=== PATIENT | female | born 1995 | race Two or more races ===

== ENCOUNTER 2016-04-22 22:01 | Emergency (ER) | payer MEDICAID ==
[2016-04-22 22:26] VITALS: TEMP 98.4; BMI 23.1
[2016-04-23] MEDS ORDERED: HYDROmorphone 1 MG INJECTION IV ONE (01:27)
[2016-04-23] MEDS ORDERED: ONDANSETRON HCL 4 MG/2 ML VIAL IV ONE (01:27)
[2016-04-23] MEDS ORDERED: NS 1,000 ML IV ONE (01:28)
[2016-04-23 01:30] LABS: LEUKOCYTES/URINE 1+ (NEGATIVE); NITRITE/URINE NEG (NEGATIVE); RBC/URINE 0-2 (0-5); URINE OCCULT BLOOD NEG (NEG/TRACE)
--- NOTE | 2016-04-23 01:31 | EDPRACDOC ---
- General Information Chief Complaint: Abdominal Pain Stated Complaint: ABD PAIN DIARRHEA DX UTI FOOD POISONING Time Seen by Provider: 04/23/16 01:26 Information Source: Patient Mode Of Arrival: Car Home Medications: Home Medications Ondansetron HCl [Zofran] 4 mg PO Q6H PRN #20 tab 04/15/14 Nitrofurantoin [Macrobid] 100 mg PO BID #20 cap 04/23/16 Oxycodone HCl/Acetaminophen [Percocet 5-325 mg Tablet] 1 each PO Q4 #20 tablet 04/23/16 Allergies/Adverse Reactions: Allergies Allergy/AdvReac Type Severity Reaction Status Date / Time Sulfa (Sulfonamide Allergy Severe Hives* Verified 04/15/14 16:57 Antibiotics) - 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 SEEN AT URGENT CARE AND STARTED ON CIPRO WHICH HAS NOT HELPED. 1 EPISODE OF N/V/D. THIS HAS STOPPED. Pain Location: Reports: RLQ Pain Context: Reports: Spontaneous Pain Severity: Moderate Pain Quality: Reports: Aching Pain Radiation: Reports: No Radiation Last Menstrual Period: 04/11/16 : No Female Abdominal History: Denies: Abdominal Surgery Female Associated Signs & Symptoms: Reports: Nausea, Vomiting, Diarrhea Oral Intake: Normal Urinary Output: Normal ED Past Medical History - History Reviewed Yes Nurses notes reviewed and agree except as marked Travel Outside of [place] in the Last 3 Months?: No - Patient Medical History Psychological History: Denies: Depression Surgical History: Reports: Other (?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 negative: Fever, Chills, Weakness, Fatigue, Loss of Appetite Eyes: No Symptoms Reported. negative: Redness, Blurred Vision, Double Vision, Discharge, Pain, Light Sensitive, Photophobia Ears: No Symptoms Reported. negative: Pain, Hearing Loss, Drainage, Ear Pulling Throat: No Symptoms Reported. negative: Pain, Swelling Nose: No Symptoms Reported. negative: Congestion, Bleeding, Discharge, Injection, Swelling, Deformity, Ecchymosis, Tender, Abrasion, Laceration Mouth: No Symptoms Reported. negative: Pain, Drooling Respiratory: No Symptoms Reported. negative: Cough, Brassy Cough, Barky Cough, Shortness of Breath, Wheezing, Hemoptysis Cardiovascular: No Symptoms Reported. negative: Chest Pain, Palpitations, Syncope, Edema, Orthopnea, PND, Skin Mottling, Cyanosis Gastrointestinal: Nausea, Pain, Vomiting. negative: Constipation, Diarrhea, Formula Intolerance, Melena Genitourinary: No Symptoms Reported. negative: Dysuria, Hematuria, Frequency, Discharge, Bleeding, Testicular Pain, Neurological: No Symptoms Reported. negative: Headache, Dizziness, Seizure, Numbness, Weakness, Speech Difficulty, Gait Difficulty Musculoskeletal: No Symptoms Reported. negative: Neck, Chestwall, Ribs, Back, Shoulder, Arm, Elbow, Forearm, Wrist, Hand, Pelvis, Hip, Femur, Knee, Leg, Ankle , Foot Integumentary: No Symptoms Reported. negative: Itching, Rash, Bruising, Wound Allergic/Immunologic: No Symptoms Reported. negative: Hives, Itching Hematologic: No Symptoms Reported. negative: Lymphadenopathy, Easy Bruising, Easy Bleeding Endocrine: No Symptoms Reported. negative: Weight Gain, Weight Loss Psychiatric: No Symptoms Reported. negative: Anxiety, Depression, Hallucinations, Insomnia, Suicidal - Physical Exam Constitutional: Alert (Awake) Oriented to: Time, Person, Place Last recorded Vital Signs: Last Vital Signs Temp 98.4 F 04/22/16 22:22 Pulse 67 04/23/16 01:19 Resp 20 04/23/16 01:19 BP 125/61 04/23/16 01:19 Pulse Ox 100 04/23/16 01:19 Oxygen Pulse Oxygen Saturation 100 O2 Device Room Air Oxygen Flow Rate Fraction of Inspired Oxygen ( FIO2) - HEENT Head: Normal ( normocephalic) Eye Exam: Normal (PERRL, EOMI, Sclera white) Oropharynx: Normal (Pharynx:Moist without exudate,Gums-no swelling) Tympanic Membrane: Normal ENT EAC: Normal TMJ: Normal Nose: No Symptoms Reported (septum midline) Neck: Normal (FROM, trachea at midline) - Respiratory/Cardiovascular Respiratory: Normal - CTA (BBS clear to auscultation without adventitious sounds ) Cardiovascular: Normal (RRR without murmur, gallop or rub) - GI Auscultation: Normal (NABS) Palpation: Normal (Soft,No rebound or guarding, non distended) Tenderness: Moderate, Guarding, RLQ Logan's Sign: Negative - Musculoskeletal Back: Normal (Non-Tender) Extremities: Normal (Normal tone, Pulses 2+ No cyanosis or edema, FROM) - Integumentary Skin: Normal, Warm, Dry Lymphatics: Normal (no adenopathy) - Neurologic Memory Impaired: Normal Motor Function: Normal (Normal tone, Pulses 2+ No cyanosis or edema, FROM) Cranial Nerve: Normal (CN II-X11 intact sensation, strength 5/5) Cerebellar: Normal Mood Description: Normal Perception: Normal - Results 04/23/16 01:35 04/23/16 01:35 WBC 9.6 xk/uL (3.8-10.8) 04/23/16 01:35 RBC 4.35 xM/uL (4.20-5.40) 04/23/16 01:35 Hgb 12.3 g/dL (12.0-16.0) 04/23/16 01:35 Hct 37.3 % (36-47) 04/23/16 01:35 MCV 86 fL (81-99) 04/23/16 01:35 MCH 28.3 pg (27-32) 04/23/16 01:35 MCHC 33.0 g/dl (33-36) 04/23/16 01:35 RDW 13.3 % (11.5-14.5) 04/23/16 01:35 Plt Count 293 xk/uL (130-400) 04/23/16 01:35 MPV 9.3 fL (7.4-10.4) 04/23/16 01:35 Neut % (Auto) 52.3 % (45-76) 04/23/16 01:35 Lymph % (Auto) 40.8 % (17-44) 04/23/16 01:35 [place] % (Auto) 5.7 % (3-10) 04/23/16 01:35 Eos % (Auto) 0.9 % (0-5) 04/23/16 01:35 Baso % (Auto) 0.3 % (0-2) 04/23/16 01:35 Absolute Neuts (auto) 4.99 xk/uL (1.7-8.2) 04/23/16 01:35 Absolute Lymphs (auto) 3.84 xk/uL (0.65-4.75) 04/23/16 01:35 Sodium 139 mEq/L (137-146) 04/23/16 01:35 Potassium 3.8 mEq/L (3.5-5.1) 04/23/16 01:35 Chloride 102 mEq/L (98-107) 04/23/16 01:35 Carbon Dioxide 28 mMOL/L (22-33) 04/23/16 01:35 Anion Gap 13 mEq/L (8-16) 04/23/16 01:35 BUN 10 MG/DL (7-17) 04/23/16 01:35 Creatinine 0.90 MG/DL (0.52-1.04) 04/23/16 01:35 Estimated GFR (MDRD) > 60 mL/min (>=60) 04/23/16 01:35 Glucose 95 mg/dL (70-99) 04/23/16 01:35 Calculated Osmolality 267 MOs/Kg (270-290) L 04/23/16 01:35 Calcium 9.6 MG/DL (8.4-10.2) 04/23/16 01:35 Total Bilirubin 0.4 MG/DL (0.2-1.3) 04/23/16 01:35 AST 23 IU/L (14-36) 04/23/16 01:35 ALT 29 IU/L (9-52) 04/23/16 01:35 Alkaline Phosphatase 74 IU/L (38-126) 04/23/16 01:35 Total Protein 8.0 G/DL (6.3-8.2) 04/23/16 01:35 Albumin 4.6 G/DL (3.5-5.0) 04/23/16 01:35 Lipase 75 U/L (23-300) 04/23/16 01:35 Urine Color Yellow 04/23/16 01:15 Urine Clarity Clear 04/23/16 01:15 Urine pH 7.0 (5.0-8.0) 04/23/16 01:15 Ur Specific [place] 1.005 (1.003-1.035) 04/23/16 01:15 Urine Protein Neg (NEG/TRACE) 04/23/16 01:15 Urine Glucose (UA) Neg (NEGATIVE) 04/23/16 01:15 Urine Ketones Neg (NEGATIVE) 04/23/16 01:15 Urine Occult Blood Neg (NEG/TRACE) 04/23/16 01:15 Urine Nitrite Neg (NEGATIVE) 04/23/16 01:15 Urine Bilirubin Neg (NEGATIVE) 04/23/16 01:15 Urine Urobilinogen <2.0 MG/DL (0-1) 04/23/16 01:15 Ur Leukocyte Esterase 1+ (NEGATIVE) H 04/23/16 01:15 Urine RBC 0-2 (0-5) 04/23/16 01:15 Urine WBC 5-10 (0-5) H 04/23/16 01:15 Ur Epithelial Cells Occ 04/23/16 01:15 Urine Bacteria Few (NEG/FEW) 04/23/16 01:15 Urine Test Neg (NEGATIVE) 04/23/16 01:15 Lab Results 04/23/16 04/23/16 04/23/16 01:35 01:35 01:15 WBC 9.6 RBC 4.35 Hgb 12.3 Hct 37.3 MCV 86 MCH 28.3 MCHC 33.0 RDW 13.3 Plt Count 293 MPV 9.3 Neut % (Auto) 52.3 Lymph % (Auto) 40.8 [place] % (Auto) 5.7 Eos % (Auto) 0.9 Baso % (Auto) 0.3 Absolute Neuts (auto) 4.99 Absolute Lymphs (auto) 3.84 Sodium 139 Potassium 3.8 Chloride 102 Carbon Dioxide 28 Anion Gap 13 BUN 10 Creatinine 0.90 Estimated GFR (MDRD) > 60 Glucose 95 Calculated Osmolality 267 L Calcium 9.6 Total Bilirubin 0.4 AST 23 ALT 29 Alkaline Phosphatase 74 Total Protein 8.0 Albumin 4.6 Lipase 75 Urine Color Yellow Urine Clarity Clear Urine pH 7.0 Ur Specific [place] 1.005 Urine Protein Neg Urine Glucose (UA) Neg Urine Ketones Neg Urine Occult Blood Neg Urine Nitrite Neg Urine Bilirubin Neg Urine Urobilinogen <2.0 Ur Leukocyte Esterase 1+ H Urine RBC 0-2 Urine WBC 5-10 H Ur Epithelial Cells Occ Urine Bacteria Few Urine Test 04/23/16 01:15 WBC RBC Hgb Hct MCV MCH MCHC RDW Plt Count MPV Neut % (Auto) Lymph % (Auto) [place] % (Auto) Eos % (Auto) Baso % (Auto) Absolute Neuts (auto) Absolute Lymphs (auto) Sodium Potassium Chloride Carbon Dioxide Anion Gap BUN Creatinine Estimated GFR (MDRD) Glucose Calculated Osmolality Calcium Total Bilirubin AST ALT Alkaline Phosphatase Total Protein Albumin Lipase Urine Color Urine Clarity Urine pH Ur Specific [place] Urine Protein Urine Glucose (UA) Urine Ketones Urine Occult Blood Urine Nitrite Urine Bilirubin Urine Urobilinogen Ur Leukocyte Esterase Urine RBC Urine WBC Ur Epithelial Cells Urine Bacteria Urine Test Neg Decision Time to Discharge: 02:49 - Departure Yes I personally saw and evaluated the patient. Disposition: Home Condition: Good Final Diagnosis: Mesenteric adenitis, Abdominal pain UTI (urinary tract infection) Qualifiers: Urinary tract infection type: acute cystitis Hematuria presence: without hematuria Qualified Code(s): N30.00 - Acute cystitis without hematuria Instructions: Acute Abdominal Pain (ED), Urinary Tract Infection in Women (ED) , Dysuria Education/Counseling Given To: Patient Education/Counseling Given Regarding: Diagnosis, Treatment, Prognosis, Follow Up Referrals: Zaira Escobar MD [Primary Care Provider] - One Week Prescriptions: New Nitrofurantoin [Macrobid] 100 mg PO BID #20 cap Oxycodone HCl/Acetaminophen [Percocet 5-325 mg Tablet] 1 each PO Q4 #20 tablet No Action Ondansetron HCl [Zofran] 4 mg PO Q6H PRN #20 tab PRN Reason: Nausea/Vomiting
[2016-04-23 01:54] LABS: AUTOMATED BASOPHIL 0.3 % (0-2); AUTOMATED EOSINOPHIL 0.9 % (0-5); AUTOMATED LYMPH 40.8 % (17-44); AUTOMATED MONOCYTE 5.7 % (3-10); AUTOMATED NEUTROPHIL 52.3 % (45-76); MPV 9.3 fL (7.4-10.4)
[2016-04-23] MEDS ORDERED: Pharmacy Review for Metformin - IV Contrast Given SCH (02:00)
[2016-04-23 02:06] LABS: BLOOD UREA NITROGEN 10 MG/DL (7-17); CALCIUM 9.6 MG/DL (8.4-10.2); CALCULATED OSMOLALITY 267 MOs/Kg (270-290); CHLORIDE 102 mEq/L (98-107); GLUCOSE 95 mg/dL (70-99); SODIUM LEVEL 139 mEq/L (137-146)
--- NOTE | 2016-04-23 02:46 | DIRPT ---
CLINICAL DATA: Right lower quadrant abdominal pain. EXAM: CT ABDOMEN AND PELVIS WITH CONTRAST TECHNIQUE: Multidetector CT imaging of the abdomen and pelvis was performed using the standard protocol following bolus administration of intravenous contrast. CONTRAST: 100 mL Isovue 370 IV COMPARISON: CT 04/15/2014 FINDINGS: Lower chest: The included lung bases are clear. Liver: Normal in size, no focal lesion. Hepatobiliary: Gallbladder physiologically distended, no calcified stone. No biliary dilatation. Pancreas: No ductal dilatation or inflammation. Spleen: Normal. Adrenal glands: No nodule. Kidneys: Symmetric renal enhancement. No hydronephrosis. Stomach/Bowel: Stomach distended with ingested contents. There are no dilated or thickened small bowel loops. Moderate volume of stool throughout the colon without colonic wall thickening. Appendix: Well-visualized and normal. No robson appendiceal inflammation. Vascular/Lymphatic: Prominent lymph nodes in the ileocolic chain. No retroperitoneal adenopathy. Abdominal aorta is normal in caliber. Reproductive: Uterus anteverted. Ovaries symmetric in size. No adnexal mass. Bladder: Physiologically distended, no wall thickening. Other: No free air, free fluid, or intra-abdominal fluid collection. Musculoskeletal: There are no acute or suspicious osseous abnormalities. IMPRESSION: 1. Normal appendix. 2. Prominent lymph nodes in the ileocolic chain, can be seen with mesenteric adenitis. Electronically Signed By: Marilou Vincent M.D. On: 04/23/2016 02:43
[2016-04-23] MEDS ORDERED: CEFTRIAXONE 1 GM in D5W 100 ML IV ONE (02:51)
[2016-04-23 04:08] VITALS: BP 116/60; PULSE 72
== END 2016-04-23 04:07 | disposition home or self-care (01) ==
LOC: ED 22:01
DX: N30.00 Acute cystitis without hematuria (principal); I88.0 Nonspecific mesenteric lymphadenitis
CPT/HCPCS: 36415; 74177; 80053; 81001; 81025; 83690; 85025; 96361; 96365; 96375; 99283; A9698; J0696; J1170; J2405; J7060